=== PATIENT | female | born 1980 | race Caucasian/White ===

== ENCOUNTER 2019-11-16 23:41 | Emergency (ER) | payer SELFPAY ==
[~2019-11-16] VITALS: Ht 152.4 cm; Wt 65.3 kg
[2019-11-16 23:45] VITALS: Ht 152.4 cm; Wt 65.3 kg
[2019-11-17 00:54] VITALS: BP 130/810
== END 2019-11-17 00:54 | disposition home or self-care (01) ==
LOC: ED 23:41
DX: M54.5 Low back pain (principal); R10.32 Left lower quadrant pain
CPT/HCPCS: J1885